=== PATIENT | female | born 1960 | race Two or more races ===

== ENCOUNTER 2019-10-01 08:00 | Day surgery (SDC) | payer OTHER | END 2019-10-01 10:45 | disposition home or self-care (01) | LOC: AMB-ENDOS 08:00 → ADM 13:30 → AMB-ENDOS 13:30 | PROVIDERS: ATTEND Colon & Rectal Surgery | DX: K57.32 Diverticulitis of large intestine without perforation or abscess without bleeding (principal); K64.1 Second degree hemorrhoids ==